=== PATIENT | female | born 1930 | race Caucasian/White ===

== ENCOUNTER 2019-03-19 11:31 | Inpatient (IN) | payer MEDICARE ==
[~2019-03-19] VITALS: Ht 165.1 cm; Wt 59.0 kg
[2019-03-19 12:03] LABS: BASO # 0.1 x10^3/uL (0.0-0.2); BASO % 1 % (0-3); EOS # 1.2 x10^3/uL (0.0-0.7); EOS % 9 % (0-3); HEMATOCRIT 38.7 % (36.0-47.0); HEMOGLOBIN 12.3 g/dL (12.0-15.5); LYMPH # 2.2 x10^3/uL (1.0-4.8); LYMPH % 17 % (24-48); MEAN CORPUSCULAR HEMOGLOBIN 27 pg (25-35); MEAN CORPUSCULAR HGB CONC 32 g/dL (31-37); MEAN CORPUSCULAR VOLUME 84 fL (79-100); MONO # 1.4 x10^3/uL (0.0-1.1); MONO % 11 % (0-9); NEUT % 62 % (31-73); PLATELET COUNT 297 x10^3/uL (140-400); RED BLOOD COUNT 4.58 x10^6/uL (3.50-5.40); RED CELL DISTRIBUTION WIDTH 14.7 % (11.5-14.5); WHITE BLOOD COUNT 12.9 x10^3/uL (4.0-11.0)
--- NOTE | 2019-03-19 12:06 | PHYS DOC ---
Past History Past Medical History: Dementia, Other Additional Past Medical Histor: psychosis. MDD. anxiety Past Surgical History: No Surgical History Alcohol Use: None Drug Use: None Adult General Chief Complaint Chief Complaint: MEDICAL CLEARANCE [facility] HPI Patient is a 88-year-old female with history of dementia, COPD who live in a long term center [facility]. Lately she has have episode of anger outburst, she is going to be admitted at this hospital geriapsych unit but need to stop in the ER to have medical clearance first. Patient denied suicidal ideation. She denied any chest pain, no shortness of air. NO cough, no fever. Review of Systems Review of Systems Constitutional: Denies fever or chills [] Eyes: Denies change in visual acuity, redness, or eye pain [] HENT: Denies nasal congestion or sore throat [] Respiratory: Denies cough or shortness of breath [] Cardiovascular: No additional information not addressed in HPI [] GI: Denies abdominal pain, nausea, vomiting, bloody stools or diarrhea [] : Denies dysuria or hematuria [] Musculoskeletal: Denies back pain or joint pain [] Integument: Denies rash or skin lesions [] Neurologic: Denies headache, focal weakness or sensory changes [] Endocrine: Denies polyuria or polydipsia [] All other systems were reviewed and found to be within normal limits, except as documented in this note. Allergies Allergies Allergies Coded Allergies Type Severity Reaction Last Updated Verified No Known Drug Allergies 03/19/19 No Physical Exam Physical Exam Constitutional: Well developed, well nourished, no acute distress, non-toxic appearance. [] HENT: Normocephalic, atraumatic, bilateral external ears normal, oropharynx moist, no oral exudates, nose normal. [] Eyes: PERRLA, EOMI, conjunctiva normal, no discharge. [] Neck: Normal range of motion, no tenderness, supple, no stridor. [] Cardiovascular:Heart rate regular rhythm, no murmur [] Lungs & Thorax: Bilateral breath sounds clear to auscultation [] Abdomen: Bowel sounds normal, soft, no tenderness, no masses, no pulsatile masses. [] Skin: Warm, dry, no erythema, no rash. [] Back: No tenderness, no CVA tenderness. [] Extremities: No tenderness, no cyanosis, no clubbing, ROM intact, no edema. [] Neurologic: Alert and oriented X 3, normal motor function, normal sensory function, no focal deficits noted. [] Psychologic: Affect normal, judgement normal, mood normal. [] Current Patient Data Vital Signs Vital Signs Date Time Temp Pulse Resp B/P (MAP) Pulse Ox O2 Delivery O2 Flow Rate FiO2 03/19/19 11:55 98.1 70 20 97 Room Air EKG EKG [] Radiology/Procedures Radiology/Procedures [] Course & Med Decision Making Course & Med Decision Making Pertinent Labs and Imaging studies reviewed. (See chart for details) [] Dragon Disclaimer Dragon Disclaimer This electronic medical record was generated, in whole or in part, using a voice recognition dictation system. Departure Departure: Impression: Primary Impression: Dementia Disposition: ADMITTED INPATIENT Admitting Physician: Other (Dr. DUCKWORTH) Condition: STABLE Referrals: SMITH DUCKWORTH MD (PCP) ARTURO SAAVEDRA DO Mar 19, 2019 12:06
[2019-03-19 12:08] LABS: CALCIUM 8.9 mg/dL (8.5-10.1); CREATININE 0.8 mg/dL (0.6-1.0); POTASSIUM 4.2 mmol/L (3.5-5.1)
[2019-03-19 12:09] LABS: AMPHETAMINE/METHAMPHETAMINE NEG (NEG); BARBITURATES NEG (NEG); BENZODIAZEPINES NEG (NEG); CANNABINOIDS NEG (NEG); COCAINE NEG (NEG); METHADONE NEG (NEG); OPIATES NEG (NEG); PHENCYCLIDINE NEG (NEG)
[2019-03-19 12:11] LABS: ACETAMIN < 2 mcg/mL (10-30); ETHANOL < 10 mg/dL (0-10); SALIC 0.3 mg/dL (2.8-20.0)
[2019-03-19 12:13] LABS: BILIRUBIN,URINE NEG (NEG); CLARITY,URINE CLEAR; COLOR,URINE YELLOW; GLUCOSE,URINE NEG (NEG); NITRITE,URINE NEG (NEG); UROBILINOGEN,URINE 0.2 mg/dL (0.2 mg/dL)
[2019-03-19 12:14] LABS: ALBUMIN 3.4 g/dL (3.4-5.0); TOTAL BILIRUBIN 0.3 mg/dL (0.2-1.0); TOTAL PROTEIN 6.7 g/dL (6.4-8.2)
[2019-03-19 12:14] LABS: BACTERIA,URINE 0 /HPF (0-FEW); RBC,URINE 0 /HPF (0-2); SQUAMOUS EPITHELIAL CELL,UR OCC /LPF; WBC,URINE RARE /HPF (0-4)
[2019-03-19] MEDS ORDERED: HYDR28.430 TP (14:14)
[2019-03-19] MEDS ORDERED: MIRT15TA90 PO (14:14)
[2019-03-19] MEDS ORDERED: CHOL4POW11 PO (14:14)
[2019-03-19] MEDS ORDERED: RIVA1PAT23 TP (14:14)
[2019-03-19] MEDS ORDERED: ACET500T68 PO ×2 (14:14)
[2019-03-19] MEDS ORDERED: ALBU2.5V5 NEB (14:14)
[2019-03-19] MEDS ORDERED: CHOL500050 PO (14:14)
[2019-03-19] MEDS ORDERED: SODI30SP NS (14:15)
[2019-03-19] MEDS ORDERED: LORA0.5T96 PO (14:15)
[2019-03-19] MEDS ORDERED: GUAI-108 PO (14:15)
[2019-03-19] MEDS ORDERED: RISP0.5T24 PO (14:15)
[2019-03-19] MEDS ORDERED: SERT25TA PO (14:15)
[2019-03-19] MEDS ORDERED: PETR5OIN TP (14:15)
[2019-03-19] MEDS ORDERED: METHYL SALICYLATE/MENTHOL TOPICAL OINTMENT 57GM TUBE. TP PRN (15:00)
[2019-03-19] MEDS ORDERED: MAG HYDROX/AL HYDROX/SIMETH 30 ML ORAL.SUSP PO PRN (15:00)
[2019-03-19] MEDS ORDERED: MAGNESIUM HYDROXIDE 2,400 MG/30 ML ORAL.SUSP. PO PRN (15:00)
[2019-03-19 15:46] VITALS: BP 154/85
--- NOTE | 2019-03-19 17:03 | RAD ---
EXAM: CHEST 2 VIEWS. HISTORY: Wheezing, leukocytosis. COMPARISON: None. FINDINGS: Frontal and lateral views of the chest are obtained. Hyperinflation is consistent with chronic obstructive pulmonary disease. There are no confluent infiltrates. There is no pneumothorax or pleural effusion. The heart is not enlarged. There are surgical clips at the hiatus. IMPRESSION: 1. Chronic obstructive pulmonary disease. No confluent infiltrates. Electronically signed by: Marjan Flaherty MD (03/19/2019 5:00 PM) [facility]
[2019-03-19] MEDS ORDERED: guaiFENesin DM 600/30MG 1 TAB TAB.ER.12H PO PRN (17:15)
[2019-03-19] MEDS ORDERED: ACETAMINOPHEN 500 MG TABLET PO PRN (17:15)
[2019-03-19] MEDS ORDERED: PETROLATUM WHITE TP PRN (17:15)
[2019-03-19] MEDS ORDERED: SODIUM CHLORIDE 0.65% NASAL SPRAY 45ML BOTTLE. NS PRN (17:15)
[2019-03-19] MEDS ORDERED: ALBUTEROL SULFATE 2.5 MG/3 ML NEBU. NEB PRN (17:15)
[2019-03-19] MEDS ORDERED: HYDROCORTISONE 1% TOPICAL CREAM 30GM TUBE. TP PRN (17:30)
[2019-03-19] MEDS: MIRTAZAPINE ODT 15 MG TAB.RAPDIS. PO SCH (20:07)
[2019-03-19] MEDS: risperiDONE 0.25 MG TABLET. PO SCH (20:07)
--- NOTE | 2019-03-19 21:08 | PDOC ---
Exam Note: [place] Note: Please also refer to the separate dictated note~for this date of service dictated separately. Discussed the patient with Nursing staff reviewed the chart.~Reviewed interim history and current functioning. Reviewed vital signs,~Labs/ Radiology~and current medications noted below. Continue current treatment with the changes noted in the dictated addendum note Assessment: Vital Signs/I&O: Vital Signs Date Time Temp Pulse Resp B/P (MAP) Pulse Ox O2 Delivery O2 Flow Rate FiO2 03/19/19 15:46 98.1 65 16 154/85 (108) 97 03/19/19 11:55 Room Air Labs: Laboratory Tests Test 03/19/19 11:42 03/19/19 11:44 Urine Collection Type Void Urine Color Yellow Urine Clarity Clear Urine pH 5.5 Urine Specific Bath <=1.005 Urine Protein Neg (NEG-TRACE) Urine Glucose (UA) Neg mg/dL (NEG) Urine Ketones (Stick) Neg mg/dL (NEG) Urine Blood Neg (NEG) Urine Nitrite Neg (NEG) Urine Bilirubin Neg (NEG) Urine Urobilinogen Dipstick 0.2 mg/dL (0.2 mg/dL) Urine Leukocyte Esterase Neg (NEG) Urine RBC 0 /HPF (0-2) Urine WBC Rare /HPF (0-4) Urine Squamous Epithelial Cells Occ /LPF Urine Bacteria 0 /HPF (0-FEW) Urine Opiates Screen Neg (NEG) Urine Methadone Screen Neg (NEG) Urine Barbiturates Neg (NEG) Urine Phencyclidine Screen Neg (NEG) Urine Amphetamine/Methamphetamine Neg (NEG) Urine Benzodiazepines Screen Neg (NEG) Urine Cocaine Screen Neg (NEG) Urine Cannabinoids Screen Neg (NEG) Urine Ethyl Alcohol Neg (NEG) White Blood Count 12.9 x10^3/uL (4.0-11.0) H Red Blood Count 4.58 x10^6/uL (3.50-5.40) Hemoglobin 12.3 g/dL (12.0-15.5) Hematocrit 38.7 % (36.0-47.0) Mean Corpuscular Volume 84 fL (79-100) Mean Corpuscular Hemoglobin 27 pg (25-35) Mean Corpuscular Hemoglobin Concent 32 g/dL (31-37) Red Cell Distribution Width 14.7 % (11.5-14.5) H Platelet Count 297 x10^3/uL (140-400) Neutrophils (%) (Auto) 62 % (31-73) Lymphocytes (%) (Auto) 17 % (24-48) L Monocytes (%) (Auto) 11 % (0-9) H Eosinophils (%) (Auto) 9 % (0-3) H Basophils (%) (Auto) 1 % (0-3) Neutrophils # (Auto) 8.0 x10^3uL (1.8-7.7) H Lymphocytes # (Auto) 2.2 x10^3/uL (1.0-4.8) Monocytes # (Auto) 1.4 x10^3/uL (0.0-1.1) H Eosinophils # (Auto) 1.2 x10^3/uL (0.0-0.7) H Basophils # (Auto) 0.1 x10^3/uL (0.0-0.2) Sodium Level 140 mmol/L (136-145) Potassium Level 4.2 mmol/L (3.5-5.1) Chloride Level 104 mmol/L (98-107) Carbon Dioxide Level 28 mmol/L (21-32) Anion Gap 8 (6-14) Blood Urea Nitrogen 16 mg/dL (7-20) Creatinine 0.8 mg/dL (0.6-1.0) Estimated GFR (Cockcroft-Gault) 68.0 BUN/Creatinine Ratio 20 (6-20) Glucose Level 83 mg/dL (70-99) Calcium Level 8.9 mg/dL (8.5-10.1) Magnesium Level 2.0 mg/dL (1.8-2.4) Total Bilirubin 0.3 mg/dL (0.2-1.0) Aspartate Amino Transferase (AST) 30 U/L (15-37) Alanine Aminotransferase (ALT) 42 U/L (14-59) Alkaline Phosphatase 80 U/L (46-116) Total Protein 6.7 g/dL (6.4-8.2) Albumin 3.4 g/dL (3.4-5.0) Albumin/Globulin Ratio 1.0 (1.0-1.7) Salicylates Level 0.3 mg/dL (2.8-20.0) L Salicylate Last Dose Date Unknown Salicylate Last Dose Time Unknown Acetaminophen Level < 2 mcg/mL (10-30) L Acetaminophen Last Dose Date Unknown Acetaminophen Last Dose Time Unknown Ethyl Alcohol Level < 10 mg/dL (0-10) Current Medications: Meds: Current Medications Medications (Trade) Dose Ordered Sig/Cristofer Route PRN Reason Start Time Stop Time Status Last Admin Dose Admin Mirtazapine (Remeron Estefani-Tab) 15 mg HS PO 03/19/19 21:00 03/19/19 20:07 Risperidone (RisperDAL) 0.25 mg TID PO 03/19/19 21:00 03/19/19 20:07 I have reviewed the current psychotropics carefully including drug interactions. Risk benefit ratio favors no change other than as noted in my dictated progress note. Diagnosis: Problems: (1) Dementia SMITH DUCKWORTH MD Mar 19, 2019 21:08
[2019-03-19 23:07] LABS: HEMOGLOBIN A1C 5.5 % (4.8-5.6)
[2019-03-20 01:06] LABS: THYROXINE 6.5 ug/dL (4.5-12.0)
[2019-03-20 05:12] VITALS: BP 138/82
[2019-03-20] MEDS: CHOLESTYRAMINE/ASPARTAME 4 GM PACKET PO SCH ×3 (08:11→17:14)
[2019-03-20] MEDS: ACETAMINOPHEN 500 MG TABLET PO SCH (08:11)
[2019-03-20] MEDS: risperiDONE 0.25 MG TABLET. PO SCH ×3 (08:11→20:21)
[2019-03-20] MEDS: SERTRALINE 25 MG TABLET. PO SCH (08:11)
[2019-03-20] MEDS: RIVASTIGMINE 9.5MG PATCH. TD SCH (08:11)
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
[2019-03-20] MEDS: LORazepam 0.5 MG TABLET PO PRN (10:10)
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
--- NOTE | 2019-03-20 11:30 | EKG ---
[address] [address] Test Date: 2019-03-20 Test Time: 05:17:43 Pat Name: JESI GARCIA Department: Room: [address] [place] [address] Gender: F Clinical Data Manager: : 1930 Requested By: ARTURO SAAVEDRA Order Number: [id number] Reading MD: Blaine Gonzalez MD Measurements Intervals [place] Rate: 68 P: 67 CO: 186 QRS: 71 QRSD: 86 T: 83 QT: 402 QTc: 428 Interpretive Statements SINUS RHYTHM Electronically Signed On 04-22-2019 9:33:34 [employer]ING [employer] by Blaine Gonzalez MD
[2019-03-20 15:45] VITALS: BP 136/72
[2019-03-20 18:45] LABS: THYROID STIM HORMONE (TSH) 0.943 uIU/mL (0.358-3.740)
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
[2019-03-20] MEDS: MIRTAZAPINE ODT 15 MG TAB.RAPDIS. PO SCH (20:21)
--- NOTE | 2019-03-20 21:32 | PDOC ---
Exam Note: [place] Note: Please also refer to the separate dictated note~for this date of service dictated separately. Discussed the patient with Nursing staff reviewed the chart.~Reviewed interim history and current functioning. Reviewed vital signs,~Labs/ Radiology~and current medications noted below. Continue current treatment with the changes noted in the dictated addendum note Assessment: Vital Signs/I&O: Vital Signs Date Time Temp Pulse Resp B/P (MAP) Pulse Ox O2 Delivery O2 Flow Rate FiO2 03/20/19 15:45 98.3 67 16 136/72 (93) 96 03/20/19 05:12 Room Air I & O 03/19/19 03/19/19 03/20/19 15:00 23:00 07:00 Intake Total 420 ml Balance 420 ml Current Medications: Meds: Current Medications Medications (Trade) Dose Ordered Sig/Cristofer Route PRN Reason Start Time Stop Time Status Last Admin Dose Admin Acetaminophen (Tylenol) 1,000 mg DAILY PO 03/20/19 09:00 03/20/19 08:11 Rivastigmine (Exelon) 1 patch DAILY TD 03/20/19 09:00 03/20/19 08:11 Sertraline HCl (Zoloft) 25 mg DAILY PO 03/20/19 09:00 03/20/19 08:11 Cholestyramine Resin (Questran Light) 4 gm TIDAC PO 03/20/19 07:30 03/20/19 17:14 I have reviewed the current psychotropics carefully including drug interactions. Risk benefit ratio favors no change other than as noted in my dictated progress note. Diagnosis: Problems: (1) Major neurocognitive disorder (2) Dementia in Alzheimer's disease with delusions (3) Dementia in Alzheimer's disease with depression (4) Dementia, vascular, with delusions (5) Dementia, vascular, with depression (6) Anxiety disorder, unspecified (7) Impulse control disorder, unspecified SMITH DUCKWORTH MD Mar 20, 2019 21:32
[2019-03-21 05:40] VITALS: BP 125/68
[2019-03-21] MEDS: ACETAMINOPHEN 500 MG TABLET PO SCH (08:22)
[2019-03-21] MEDS: CHOLESTYRAMINE/ASPARTAME 4 GM PACKET PO SCH ×3 (08:22→17:08)
[2019-03-21] MEDS: RIVASTIGMINE 9.5MG PATCH. TD SCH (08:22)
[2019-03-21] MEDS: SERTRALINE 25 MG TABLET. PO SCH (08:22)
[2019-03-21] MEDS: risperiDONE 0.25 MG TABLET. PO SCH ×3 (08:22→19:30)
[2019-03-21] MEDS: LORazepam 0.5 MG TABLET PO PRN (12:30)
--- NOTE | 2019-03-21 12:58 | PN ---
DATE: 03/21/2019 SUBJECTIVE: The patient was seen today, met with the staff, chart reviewed and also covering for Dr. Tierney. Staff reports no major behavior problems except she is not sleeping well and waking her roommate because of her dreams. OBSERVATION: VITAL SIGNS: Temperature 97.7, blood pressure 125/68, pulse 61, respirations 16, O2 sat 96%. GENERAL: Slept about 4 hours last night. The patient's appetite is fair. The patient's appetite varies. LABORATORY DATA: The patient's lab reviewed, has elevated triglycerides to 75, LDL 61, HDL 34. MEDICATIONS: The patient's current medications include vitamin D 50,000 units weekly, Zoloft 25 mg daily, Exelon patch daily, Risperdal 0.25 mg t.i.d., mirtazapine 50 mg at night, lorazepam 0.5 mg q. 4 hours p.r.n. The patient is not having any side effects to medications. ASSESSMENT: Major neurocognitive disorder, most likely Alzheimer's versus vascular with delusions, depression, behavioral disturbances and generalized anxiety disorder. PLAN: To continue with the treatment. LENGTH OF STAY: 5-7 days. ERMIAS ALFARO MD DR: VÍCTOR/gracie JOB#: [id number] / [id number]
[2019-03-21] MEDS ORDERED: ONDANSETRON ODT 4 MG TAB.RAPDIS PO PRN (13:15)
[2019-03-21 15:34] VITALS: BP 101/63
[2019-03-21 15:38] LABS: BASO # 0.1 x10^3/uL (0.0-0.2); BASO % 1 % (0-3); EOS # 1.1 x10^3/uL (0.0-0.7); EOS % 14 % (0-3); HEMATOCRIT 37.2 % (36.0-47.0); LYMPH # 1.6 x10^3/uL (1.0-4.8); LYMPH % 21 % (24-48); MEAN CORPUSCULAR HEMOGLOBIN 27 pg (25-35); MEAN CORPUSCULAR HGB CONC 32 g/dL (31-37); MEAN CORPUSCULAR VOLUME 83 fL (79-100); MONO # 0.8 x10^3/uL (0.0-1.1); MONO % 10 % (0-9); NEUT # 4.2 x10^3uL (1.8-7.7); NEUT % 54 % (31-73); PLATELET COUNT 285 x10^3/uL (140-400); RED CELL DISTRIBUTION WIDTH 14.4 % (11.5-14.5); WHITE BLOOD COUNT 7.7 x10^3/uL (4.0-11.0)
[2019-03-21 15:52] LABS: ALBUMIN 3.3 g/dL (3.4-5.0); CALCIUM 8.3 mg/dL (8.5-10.1); CREATININE 0.7 mg/dL (0.6-1.0); GFR 79.3; POTASSIUM 4.2 mmol/L (3.5-5.1); TOTAL BILIRUBIN 0.2 mg/dL (0.2-1.0); TOTAL PROTEIN 6.5 g/dL (6.4-8.2)
[2019-03-21] MEDS: MIRTAZAPINE ODT 15 MG TAB.RAPDIS. PO SCH (19:30)
[2019-03-22 05:40] VITALS: BP 119/60
[2019-03-22] MEDS: ACETAMINOPHEN 500 MG TABLET PO SCH (08:10)
[2019-03-22] MEDS: risperiDONE 0.25 MG TABLET. PO SCH (08:10)
[2019-03-22] MEDS: CHOLESTYRAMINE/ASPARTAME 4 GM PACKET PO SCH ×3 (08:10→16:50)
[2019-03-22] MEDS: RIVASTIGMINE 9.5MG PATCH. TD SCH (08:10)
[2019-03-22] MEDS: SERTRALINE 25 MG TABLET. PO SCH (08:10)
[2019-03-22] MEDS: LORazepam 0.5 MG TABLET PO PRN ×2 (10:04→14:34)
[2019-03-22 16:11] VITALS: BP 136/78
[2019-03-22] MEDS: MIRTAZAPINE ODT 15 MG TAB.RAPDIS. PO SCH (20:32)
[2019-03-22] MEDS ORDERED: risperiDONE ORAL 1 MG/ML 30ml BOTTLE. SL SCH (21:00)
--- NOTE | 2019-03-22 21:15 | PN ---
DATE: 03/22/2019 SUBJECTIVE: The patient was seen today, met with the staff, chart reviewed. The patient is still confused, difficult to follow directions, verbally abusive at times. The patient's behavior fluctuates. The patient is still not sleeping well. OBSERVATION: VITAL SIGNS: Temperature 97.5, blood pressure 119/60, pulse 63, respirations 16, O2 sat 93%. Slept about 8 hours last night. LABORATORY DATA: The patient's lab reviewed. MEDICATIONS: The patient's current medications include Zoloft 25 mg daily, Exelon patch daily, Risperdal 0.25 mg t.i.d., mirtazapine 15 mg at night, lorazepam 0.5 mg q.4 hours p.r.n. The patient is not having any side effects to the medications. ASSESSMENT: 1. Major neurocognitive disorder, most likely Alzheimer's versus vascular with delusion, depression and behavioral disturbances. 2. Generalized anxiety disorder. PLAN: To continue with the treatment and increase Risperdal to 1.5 mg at night. LENGTH OF STAY: 5-7 days. ERMIAS ALFARO MD DR: VÍCTOR/gracie JOB#: [id number] / [id number]
[2019-03-23 05:53] VITALS: BP 128/78
[2019-03-23] MEDS: RIVASTIGMINE 9.5MG PATCH. TD SCH (08:55)
[2019-03-23] MEDS: SERTRALINE 25 MG TABLET. PO SCH (08:55)
[2019-03-23] MEDS: ACETAMINOPHEN 500 MG TABLET PO SCH (08:55)
[2019-03-23] MEDS: CHOLESTYRAMINE/ASPARTAME 4 GM PACKET PO SCH ×3 (08:55→16:18)
[2019-03-23 15:52] VITALS: BP 151/82
[2019-03-23] MEDS: DIVALPROEX 125 MG CAP.SPRINK PO SCH (20:10)
[2019-03-23] MEDS: MIRTAZAPINE ODT 15 MG TAB.RAPDIS. PO SCH (20:11)
[2019-03-23] MEDS: QUEtiapine 25 MG TABLET. PO SCH (20:11)
--- NOTE | 2019-03-23 21:11 | PDOC ---
Exam Note: [place] Note: Please also refer to the separate dictated note~for this date of service dictated separately.~Patient seen individually. Discussed the patient with Nursing staff reviewed the chart.~Reviewed interim history and current functioning. Reviewed vital signs,~Labs/ Radiology~and current medications noted below. Continue current treatment with the changes noted in the dictated addendum note Assessment: Vital Signs/I&O: Vital Signs Date Time Temp Pulse Resp B/P (MAP) Pulse Ox O2 Delivery O2 Flow Rate FiO2 03/23/19 15:52 97.6 87 20 151/82 (105) 96 03/21/19 05:40 Room Air I & O 03/22/19 03/22/19 03/23/19 14:59 22:59 06:59 Intake Total 600 ml 320 ml Balance 600 ml 320 ml Current Medications: Meds: Current Medications Medications (Trade) Dose Ordered Sig/Cristofer Route PRN Reason Start Time Stop Time Status Last Admin Dose Admin Olanzapine (ZyPREXA ZYDIS) 2.5 mg PRN Q2HR PRN PO PSYCHOSIS 03/23/19 11:30 03/23/19 15:03 Quetiapine Fumarate (SEROquel) 25 mg QHS PO 03/23/19 21:00 03/23/19 20:11 Divalproex Sodium (Depakote Sprinkles) 125 mg 0900,1700 PO 03/23/19 19:00 03/23/19 20:10 I have reviewed the current psychotropics carefully including drug interactions. Risk benefit ratio favors no change other than as noted in my dictated progress note. Diagnosis: Problems: (1) Impulse control disorder, unspecified (2) Anxiety disorder, unspecified (3) Dementia, vascular, with depression (4) Dementia, vascular, with delusions (5) Dementia in Alzheimer's disease with depression (6) Dementia in Alzheimer's disease with delusions (7) Major neurocognitive disorder SMITH DUCKWORTH MD Mar 23, 2019 21:11
--- NOTE | 2019-03-23 21:13 | PN ---
DATE: 03/20/2019 PSYCHIATRIC PROGRESS NOTE This late entry, 03/20, covers the elements not covered in my initial note. SUBJECTIVE: I met with the patient on the evening of 03/20. The patient was also staffed at a treatment team meeting with the entire team earlier in the day and her son, Hunter from [place] attended the treatment team meeting. She slept 5 hours previous night, confused, anxious in the morning, exit seeking at the doors, cursing at staff, felt her needs to find her. We will request records from [facility]. REVIEW OF SYSTEMS: No CV, , pulmonary, eye, ENT systems symptoms on review. Reliability poor. MENTAL STATUS EXAM: Oriented to herself. Insight, judgment, recent and remote memory, attention, concentration, fund of knowledge poor, consistent with her diagnosis mentioned in my initial note. PLAN: Chest x-ray is negative. UA negative. WBC 12.9. Maintain Exelon patch 9.5 mg a day, Remeron 15 mg at bedtime, Risperdal 0.25 mg t.i.d., which we will try and taper gradually. Maintain Zoloft 25 mg a day. Adjust further as clinically indicated. SMITH DUCKWORTH MD DR: ERROL/gracie JOB#: [id number] / [id number]
[2019-03-24 05:17] VITALS: BP 115/70
[2019-03-24] MEDS: RIVASTIGMINE 9.5MG PATCH. TD SCH (08:43)
[2019-03-24] MEDS: DIVALPROEX 125 MG CAP.SPRINK PO SCH ×2 (08:43→16:20)
[2019-03-24] MEDS: SERTRALINE 25 MG TABLET. PO SCH (08:44)
[2019-03-24] MEDS: CHOLESTYRAMINE/ASPARTAME 4 GM PACKET PO SCH ×3 (08:44→16:20)
[2019-03-24] MEDS: ACETAMINOPHEN 500 MG TABLET PO SCH (08:44)
[2019-03-24 16:15] VITALS: BP 144/81
[2019-03-24] MEDS: QUEtiapine 25 MG TABLET. PO SCH (20:55)
[2019-03-24] MEDS: MIRTAZAPINE ODT 15 MG TAB.RAPDIS. PO SCH (20:56)
--- NOTE | 2019-03-24 21:30 | PDOC ---
Exam Note: [place] Note: Please also refer to the separate dictated note~for this date of service dictated separately.~Patient seen individually. Discussed the patient with Nursing staff reviewed the chart.~Reviewed interim history and current functioning. Reviewed vital signs,~Labs/ Radiology~and current medications noted below. Continue current treatment with the changes noted in the dictated addendum note Assessment: Vital Signs/I&O: Vital Signs Date Time Temp Pulse Resp B/P (MAP) Pulse Ox O2 Delivery O2 Flow Rate FiO2 03/24/19 16:15 98.7 77 16 144/81 (102) 95 03/21/19 05:40 Room Air I & O 03/23/19 03/23/19 03/24/19 15:00 23:00 07:00 Intake Total 600 ml 480 ml Balance 600 ml 480 ml Current Medications: I have reviewed the current psychotropics carefully including drug interactions. Risk benefit ratio favors no change other than as noted in my dictated progress note. Diagnosis: Problems: (1) Impulse control disorder, unspecified (2) Anxiety disorder, unspecified (3) Dementia, vascular, with depression (4) Dementia, vascular, with delusions (5) Dementia in Alzheimer's disease with depression (6) Dementia in Alzheimer's disease with delusions (7) Major neurocognitive disorder SMITH DUCKWORTH MD Mar 24, 2019 21:30
[2019-03-25 05:14] VITALS: BP 114/68
[2019-03-25] MEDS: SERTRALINE 50 MG TABLET. PO SCH (09:09)
[2019-03-25] MEDS: DIVALPROEX 125 MG CAP.SPRINK PO SCH ×2 (09:09→16:25)
[2019-03-25] MEDS: RIVASTIGMINE 9.5MG PATCH. TD SCH (09:09)
[2019-03-25] MEDS: ACETAMINOPHEN 500 MG TABLET PO SCH (09:09)
[2019-03-25] MEDS: CHOLESTYRAMINE/ASPARTAME 4 GM PACKET PO SCH ×3 (09:10→16:25)
[2019-03-25 15:42] VITALS: BP 127/75
[2019-03-25] MEDS: MIRTAZAPINE ODT 15 MG TAB.RAPDIS. PO SCH (19:32)
[2019-03-25] MEDS: QUEtiapine 25 MG TABLET. PO SCH (19:32)
--- NOTE | 2019-03-25 20:51 | PDOC ---
Exam Note: [place] Note: Please also refer to the separate dictated note~for this date of service dictated separately.~Patient seen individually. Discussed the patient with Nursing staff reviewed the chart.~Reviewed interim history and current functioning. Reviewed vital signs,~Labs/ Radiology~and current medications noted below. Continue current treatment with the changes noted in the dictated addendum note Assessment: Vital Signs/I&O: Vital Signs Date Time Temp Pulse Resp B/P (MAP) Pulse Ox O2 Delivery O2 Flow Rate FiO2 03/25/19 15:42 98.7 67 16 127/75 (92) 96 03/25/19 05:14 Room Air I & O 03/24/19 03/24/19 03/25/19 14:59 22:59 06:59 Intake Total 720 ml 480 ml Balance 720 ml 480 ml Current Medications: Meds: Current Medications Medications (Trade) Dose Ordered Sig/Cristofer Route PRN Reason Start Time Stop Time Status Last Admin Dose Admin Sertraline HCl (Zoloft) 50 mg DAILY PO 03/25/19 09:00 03/25/19 09:09 I have reviewed the current psychotropics carefully including drug interactions. Risk benefit ratio favors no change other than as noted in my dictated progress note. Diagnosis: Problems: (1) Impulse control disorder, unspecified (2) Anxiety disorder, unspecified (3) Dementia, vascular, with depression (4) Dementia, vascular, with delusions (5) Dementia in Alzheimer's disease with depression (6) Dementia in Alzheimer's disease with delusions (7) Major neurocognitive disorder SMITH DUCKWORTH MD Mar 25, 2019 20:51
[2019-03-26 05:40] VITALS: BP 115/75
[2019-03-26] MEDS: RIVASTIGMINE 9.5MG PATCH. TD SCH (08:31)
[2019-03-26] MEDS: DIVALPROEX 125 MG CAP.SPRINK PO SCH ×2 (08:31→16:29)
[2019-03-26] MEDS: CHOLESTYRAMINE/ASPARTAME 4 GM PACKET PO SCH ×3 (08:31→16:29)
[2019-03-26] MEDS: ACETAMINOPHEN 500 MG TABLET PO SCH (08:31)
[2019-03-26] MEDS: SERTRALINE 50 MG TABLET. PO SCH (08:31)
[2019-03-26] MEDS ORDERED: CHOLECALCIFEROL (VITAMIN D3) 50,000 UNIT CAPSULE PO SCH (16:00)
[2019-03-26 16:23] VITALS: BP 143/68
[2019-03-26] MEDS: QUEtiapine 25 MG TABLET. PO SCH (19:44)
[2019-03-26] MEDS: MIRTAZAPINE ODT 15 MG TAB.RAPDIS. PO SCH (19:44)
--- NOTE | 2019-03-26 21:11 | PDOC ---
Exam Note: [place] Note: Please also refer to the separate dictated note~for this date of service dictated separately.~Patient seen individually. Discussed the patient with Nursing staff reviewed the chart.~Reviewed interim history and current functioning. Reviewed vital signs,~Labs/ Radiology~and current medications noted below. Continue current treatment with the changes noted in the dictated addendum note Assessment: Vital Signs/I&O: Vital Signs Date Time Temp Pulse Resp B/P (MAP) Pulse Ox O2 Delivery O2 Flow Rate FiO2 03/26/19 16:23 97.8 70 16 143/68 (93) 98 Room Air I & O 03/25/19 03/25/19 03/26/19 15:00 23:00 07:00 Intake Total 960 ml 240 ml 240 ml Balance 960 ml 240 ml 240 ml Current Medications: Meds: Current Medications Medications (Trade) Dose Ordered Sig/Cristofer Route PRN Reason Start Time Stop Time Status Last Admin Dose Admin Vitamin D (Vitamin D3) 50,000 unit QTH PO 03/26/19 16:00 03/26/19 16:29 I have reviewed the current psychotropics carefully including drug interactions. Risk benefit ratio favors no change other than as noted in my dictated progress note. Diagnosis: Problems: (1) Impulse control disorder, unspecified (2) Anxiety disorder, unspecified (3) Dementia, vascular, with depression (4) Dementia, vascular, with delusions (5) Dementia in Alzheimer's disease with depression (6) Dementia in Alzheimer's disease with delusions (7) Major neurocognitive disorder SMITH DUCKWORTH MD Mar 26, 2019 21:11
--- NOTE | 2019-03-27 01:04 | PN ---
DATE: 03/23/2019 PSYCHIATRIC PROGRESS NOTE This late entry, 03/23/2019, covers elements not covered in my initial note. SUBJECTIVE: Per Hayley RN, the patient slept 6 hours previous night, is confused, disorganized, restless, looking for her son. REVIEW OF SYSTEMS: No CV, , pulmonary, eye, ENT system symptoms on review. Reliability poor. MENTAL STATUS EXAM: Oriented to herself. Insight, judgment, recent and remote memory, attention, concentration, fund of knowledge poor, consistent with her diagnosis mentioned in my initial note. PLAN: Change Risperdal 1.5 mg a day down to Seroquel 25 mg at bedtime. Start Depakote Sprinkles 125 mg twice a day. Check labs level in 3 days. Rest unchanged. MAN Sander DUCKWORTH MD DR: ERROL/gracie JOB#: [id number] / [id number]
--- NOTE | 2019-03-27 01:19 | PN ---
DATE: 03/24/2019 PSYCHIATRIC PROGRESS NOTE This late entry 03/24/2019 covers the elements not covered in my initial note. SUBJECTIVE: I met with the patient in the evening. Per CHARLENE Bryant, the patient slept 6 hours previous night. She seems to sundown, gets agitated, delusional, exit seeking, confused in the evening, was punching staff, ate nothing for lunch, and was quite lucid at breakfast time. REVIEW OF SYSTEMS: No CV, , pulmonary, eye, ENT system symptoms on review. Reliability poor. MENTAL STATUS EXAM: Oriented to herself. Insight, judgment, recent, and remote memory, attention, concentration, fund of knowledge poor, consistent with her diagnosis mentioned in my initial note. PLAN: No change from initial note. She has received Zyprexa at 2.5 mg twice during the day p.r.n. MAN Sander DUCKWORTH MD DR: ERROL/gracie JOB#: [id number] / [id number]
[2019-03-27 04:52] VITALS: BP 150/68
[2019-03-27 07:34] LABS: BASO # 0.1 x10^3/uL (0.0-0.2); BASO % 1 % (0-3); EOS # 1.1 x10^3/uL (0.0-0.7); EOS % 14 % (0-3); HEMATOCRIT 38.3 % (36.0-47.0); HEMOGLOBIN 12.3 g/dL (12.0-15.5); LYMPH # 1.9 x10^3/uL (1.0-4.8); LYMPH % 23 % (24-48); MEAN CORPUSCULAR HEMOGLOBIN 27 pg (25-35); MEAN CORPUSCULAR HGB CONC 32 g/dL (31-37); MEAN CORPUSCULAR VOLUME 84 fL (79-100); MONO # 0.9 x10^3/uL (0.0-1.1); MONO % 10 % (0-9); NEUT # 4.4 x10^3uL (1.8-7.7); NEUT % 52 % (31-73); PLATELET COUNT 287 x10^3/uL (140-400); RED BLOOD COUNT 4.58 x10^6/uL (3.50-5.40); RED CELL DISTRIBUTION WIDTH 14.7 % (11.5-14.5); WHITE BLOOD COUNT 8.5 x10^3/uL (4.0-11.0)
[2019-03-27 07:54] LABS: ALBUMIN 3.2 g/dL (3.4-5.0); ALK PHOS 71 U/L (46-116); ALT (SGPT) 22 U/L (14-59); ANION GAP 9 (6-14); AST (SGOT) 19 U/L (15-37); BLOOD UREA NITROGEN 15 mg/dL (7-20); BUN/CREATININE RATIO 19 (6-20); CALCIUM 8.7 mg/dL (8.5-10.1); CARBON DIOXIDE 27 mmol/L (21-32); CHLORIDE 108 mmol/L (98-107); CREATININE 0.8 mg/dL (0.6-1.0); GLUCOSE 80 mg/dL (70-99); POTASSIUM 4.3 mmol/L (3.5-5.1); SODIUM 144 mmol/L (136-145); TOTAL BILIRUBIN 0.3 mg/dL (0.2-1.0); TOTAL PROTEIN 6.5 g/dL (6.4-8.2)
[2019-03-27 07:56] LABS: VAL ACID 21 mcg/mL (50-100)
[2019-03-27] MEDS: CHOLESTYRAMINE/ASPARTAME 4 GM PACKET PO SCH ×3 (08:11→17:16)
[2019-03-27] MEDS: ACETAMINOPHEN 500 MG TABLET PO SCH (08:13)
[2019-03-27] MEDS: SERTRALINE 50 MG TABLET. PO SCH (08:13)
[2019-03-27] MEDS: RIVASTIGMINE 9.5MG PATCH. TD SCH (09:00)
[2019-03-27] MEDS: DIVALPROEX 125 MG CAP.SPRINK PO SCH ×2 (09:00→17:16)
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
--- NOTE | 2019-03-27 10:26 | PN ---
DATE: 03/25/2019 PSYCHIATRIC PROGRESS NOTE This late entry 03/25/2019 covers the elements not covered in my initial note. SUBJECTIVE: I met with the patient in the evening of 03/25/2019. Per CHARLENE Davis, the patient slept 5-1/4 hours previous night. She has been anxious, restless, was grabbing nursing staff and hitting nursing staff during showers. Compliant with medications, did receive Zyprexa p.r.n., did better after that. REVIEW OF SYSTEMS: No CV, , pulmonary, eye, ENT system symptoms on review. Reliability poor. MENTAL STATUS EXAM: Oriented to herself. Insight, judgment, recent and remote memory, attention, concentration, fund of knowledge poor, consistent with her diagnosis mentioned in my initial note. PLAN: No change from initial note. Maintain Zoloft, Seroquel, Exelon patch. Add Depakote Sprinkles along with Zyprexa p.r.n., Remeron 15 mg at bedtime. MAN Sander DUCKWORTH MD DR: ERROL/gracie JOB#: [id number] / [id number]
--- NOTE | 2019-03-27 10:28 | PN ---
DATE: 03/26/2019 This late entry 03/26/2019 covers elements not covered in my initial note. SUBJECTIVE: I met with the patient evening of 03/26/2019. Per CHARLENE Chiu, the patient slept 7 hours previous night. She remains anxious, restless, confused, convinced that one of the other demented patients on the unit is her , difficult to redirect from this. Otherwise, quite social. REVIEW OF SYSTEMS: No CV, , pulmonary, eye, ENT system symptoms on review. Reliability poor. MENTAL STATUS EXAM: Oriented to herself. Insight, judgment, recent and remote memory, attention, concentration, fund of knowledge poor, consistent with her diagnosis mentioned in my initial note. PLAN: No change from initial note. MAN Sander DUCKWORTH MD DR: ERROL/gracie JOB#: [id number] / [id number]
[2019-03-27 15:45] VITALS: BP 149/71
[2019-03-27] MEDS: QUEtiapine 25 MG TABLET. PO SCH (20:20)
[2019-03-27] MEDS: MIRTAZAPINE ODT 15 MG TAB.RAPDIS. PO SCH (20:20)
--- NOTE | 2019-03-27 20:58 | PDOC ---
Exam Note: [place] Note: Please also refer to the separate dictated note~for this date of service dictated separately.~Patient seen individually. Discussed the patient with Nursing staff reviewed the chart.~Reviewed interim history and current functioning. Reviewed vital signs,~Labs/ Radiology~and current medications noted below. Continue current treatment with the changes noted in the dictated addendum note Assessment: Vital Signs/I&O: Vital Signs Date Time Temp Pulse Resp B/P (MAP) Pulse Ox O2 Delivery O2 Flow Rate FiO2 03/27/19 15:45 98.9 66 18 149/71 (97) 96 03/27/19 04:52 Room Air I & O 03/26/19 03/26/19 03/27/19 15:00 23:00 07:00 Intake Total 720 ml 480 ml Balance 720 ml 480 ml Labs: Laboratory Tests Test 03/27/19 07:15 White Blood Count 8.5 x10^3/uL (4.0-11.0) Red Blood Count 4.58 x10^6/uL (3.50-5.40) Hemoglobin 12.3 g/dL (12.0-15.5) Hematocrit 38.3 % (36.0-47.0) Mean Corpuscular Volume 84 fL (79-100) Mean Corpuscular Hemoglobin 27 pg (25-35) Mean Corpuscular Hemoglobin Concent 32 g/dL (31-37) Red Cell Distribution Width 14.7 % (11.5-14.5) H Platelet Count 287 x10^3/uL (140-400) Neutrophils (%) (Auto) 52 % (31-73) Lymphocytes (%) (Auto) 23 % (24-48) L Monocytes (%) (Auto) 10 % (0-9) H Eosinophils (%) (Auto) 14 % (0-3) H Basophils (%) (Auto) 1 % (0-3) Neutrophils # (Auto) 4.4 x10^3uL (1.8-7.7) Lymphocytes # (Auto) 1.9 x10^3/uL (1.0-4.8) Monocytes # (Auto) 0.9 x10^3/uL (0.0-1.1) Eosinophils # (Auto) 1.1 x10^3/uL (0.0-0.7) H Basophils # (Auto) 0.1 x10^3/uL (0.0-0.2) Sodium Level 144 mmol/L (136-145) Potassium Level 4.3 mmol/L (3.5-5.1) Chloride Level 108 mmol/L (98-107) H Carbon Dioxide Level 27 mmol/L (21-32) Anion Gap 9 (6-14) Blood Urea Nitrogen 15 mg/dL (7-20) Creatinine 0.8 mg/dL (0.6-1.0) Estimated GFR (Cockcroft-Gault) 68.0 BUN/Creatinine Ratio 19 (6-20) Glucose Level 80 mg/dL (70-99) Calcium Level 8.7 mg/dL (8.5-10.1) Total Bilirubin 0.3 mg/dL (0.2-1.0) Aspartate Amino Transferase (AST) 19 U/L (15-37) Alanine Aminotransferase (ALT) 22 U/L (14-59) Alkaline Phosphatase 71 U/L (46-116) Total Protein 6.5 g/dL (6.4-8.2) Albumin 3.2 g/dL (3.4-5.0) L Albumin/Globulin Ratio 1.0 (1.0-1.7) Valproic Acid Level 21 mcg/mL (50-100) L Valproic Acid Last Dose Date 03/26/2019 Valproic Acid Last Dose Time 1700 Current Medications: Meds: Current Medications Medications (Trade) Dose Ordered Sig/Cristofer Route PRN Reason Start Time Stop Time Status Last Admin Dose Admin Quetiapine Fumarate (SEROquel) 37.5 mg QHS PO 03/27/19 21:00 03/27/19 20:20 I have reviewed the current psychotropics carefully including drug interactions. Risk benefit ratio favors no change other than as noted in my dictated progress note. Diagnosis: Problems: (1) Impulse control disorder, unspecified (2) Anxiety disorder, unspecified (3) Dementia, vascular, with depression (4) Dementia, vascular, with delusions (5) Dementia in Alzheimer's disease with depression (6) Dementia in Alzheimer's disease with delusions (7) Major neurocognitive disorder SMITH DUCKWORTH MD Mar 27, 2019 20:58
[2019-03-28 04:55] VITALS: BP 124/70
[2019-03-28] MEDS: CHOLESTYRAMINE/ASPARTAME 4 GM PACKET PO SCH ×3 (08:32→15:39)
[2019-03-28] MEDS: SERTRALINE 50 MG TABLET. PO SCH (08:35)
[2019-03-28] MEDS: ACETAMINOPHEN 500 MG TABLET PO SCH (08:35)
[2019-03-28] MEDS: DIVALPROEX 125 MG CAP.SPRINK PO SCH ×2 (08:35→16:12)
[2019-03-28] MEDS: RIVASTIGMINE 9.5MG PATCH. TD SCH (08:36)
[2019-03-28 16:39] VITALS: BP 132/70
--- NOTE | 2019-03-28 21:22 | PDOC ---
Exam Note: [place] Note: Please also refer to the separate dictated note~for this date of service dictated separately.~Patient seen individually. Discussed the patient with Nursing staff reviewed the chart.~Reviewed interim history and current functioning. Reviewed vital signs,~Labs/ Radiology~and current medications noted below. Continue current treatment with the changes noted in the dictated addendum note Assessment: Vital Signs/I&O: Vital Signs Date Time Temp Pulse Resp B/P (MAP) Pulse Ox O2 Delivery O2 Flow Rate FiO2 03/28/19 16:39 98.0 68 20 132/70 (90) 97 Room Air I & O 03/27/19 03/27/19 03/28/19 14:59 22:59 06:59 Intake Total 600 ml 600 ml Balance 600 ml 600 ml Current Medications: I have reviewed the current psychotropics carefully including drug interactions. Risk benefit ratio favors no change other than as noted in my dictated progress note. Diagnosis: Problems: (1) Impulse control disorder, unspecified (2) Anxiety disorder, unspecified (3) Dementia, vascular, with depression (4) Dementia, vascular, with delusions (5) Dementia in Alzheimer's disease with depression (6) Dementia in Alzheimer's disease with delusions (7) Major neurocognitive disorder SMITH DUCKWORTH MD Mar 28, 2019 21:22
[2019-03-28] MEDS: MIRTAZAPINE ODT 15 MG TAB.RAPDIS. PO SCH (21:34)
[2019-03-28] MEDS: QUEtiapine 25 MG TABLET. PO SCH (21:34)
[2019-03-29 05:00] VITALS: BP 97/52
[2019-03-29] MEDS: DIVALPROEX 125 MG CAP.SPRINK PO SCH ×2 (08:36→17:13)
[2019-03-29] MEDS: CHOLESTYRAMINE/ASPARTAME 4 GM PACKET PO SCH ×3 (08:36→17:13)
[2019-03-29] MEDS: RIVASTIGMINE 9.5MG PATCH. TD SCH (08:36)
[2019-03-29] MEDS: ACETAMINOPHEN 500 MG TABLET PO SCH (08:36)
[2019-03-29] MEDS: SERTRALINE 50 MG TABLET. PO SCH (08:36)
[2019-03-29 15:48] VITALS: BP 135/68
--- NOTE | 2019-03-29 20:43 | PDOC ---
Exam Note: [place] Note: Please also refer to the separate dictated note~for this date of service dictated separately.~Patient seen individually. Discussed the patient with Nursing staff reviewed the chart.~Reviewed interim history and current functioning. Reviewed vital signs,~Labs/ Radiology~and current medications noted below. Continue current treatment with the changes noted in the dictated addendum note Assessment: Vital Signs/I&O: Vital Signs Date Time Temp Pulse Resp B/P (MAP) Pulse Ox O2 Delivery O2 Flow Rate FiO2 03/29/19 15:48 97.3 65 16 135/68 (90) 94 03/28/19 16:39 Room Air I & O 03/28/19 03/28/19 03/29/19 15:00 23:00 07:00 Intake Total 720 ml 320 ml Balance 720 ml 320 ml Current Medications: I have reviewed the current psychotropics carefully including drug interactions. Risk benefit ratio favors no change other than as noted in my dictated progress note. Diagnosis: Problems: (1) Impulse control disorder, unspecified (2) Anxiety disorder, unspecified (3) Dementia, vascular, with depression (4) Dementia, vascular, with delusions (5) Dementia in Alzheimer's disease with depression (6) Dementia in Alzheimer's disease with delusions (7) Major neurocognitive disorder SMITH DUCKWORTH MD Mar 29, 2019 20:43
[2019-03-29] MEDS: QUEtiapine 25 MG TABLET. PO SCH (20:53)
[2019-03-29] MEDS: MIRTAZAPINE ODT 15 MG TAB.RAPDIS. PO SCH (20:53)
--- NOTE | 2019-03-30 00:44 | PN ---
DATE: 03/28/2019 PSYCHIATRIC PROGRESS NOTE This late entry, 03/28/2019, covers elements not covered in my initial note. SUBJECTIVE: I met with the patient in the evening. The patient slept 7-1/2 hours previous night. She remains confused, looking for her and then for the bus, but not aggressive. REVIEW OF SYSTEMS: No CV, , pulmonary, eye, ENT system symptoms on review. Reliability poor. MENTAL STATUS EXAM: Oriented to herself. Insight, judgment, recent and remote memory, attention, concentration, fund of knowledge poor, consistent with her diagnosis mentioned in my initial note. PLAN: No change from initial note. SMITH DUCKWORTH MD DR: ERROL/gracie JOB#: [id number] / [id number]
--- NOTE | 2019-03-30 00:45 | PN ---
DATE: 03/27/2019 PSYCHIATRIC PROGRESS NOTE. This late entry of 03/27/2019 covers the elements not covered in my initial note. SUBJECTIVE: I met with the patient in the evening of 03/27/2019 and staffed at a treatment team meeting with the entire team earlier in the day and the patient's son, Hunter, attended this conference. Per CHARLENE Chiu, the patient slept 6-1/2 hours. Appetite 85%. Valproic acid level 21. She has been pleasant, looking for her , compliant with medications, anxious during showers, wandering, looking for the bus. REVIEW OF SYSTEMS: No CV, , pulmonary, eye, ENT system symptoms on review. Reliability poor. MENTAL STATUS EXAM: Oriented to herself. Insight, judgment, recent and remote memory, attention, concentration, fund of knowledge poor, consistent with her diagnosis mentioned in my initial note. PLAN: No change from initial note. SMITH DUCKWORTH MD DR: ERROL/gracie JOB#: [id number] / [id number]
[2019-03-30 05:56] VITALS: BP 114/65
[2019-03-30] MEDS: SERTRALINE 50 MG TABLET. PO SCH (08:10)
[2019-03-30] MEDS: DIVALPROEX 125 MG CAP.SPRINK PO SCH ×2 (08:10→17:10)
[2019-03-30] MEDS: ACETAMINOPHEN 500 MG TABLET PO SCH (08:10)
[2019-03-30] MEDS: CHOLESTYRAMINE/ASPARTAME 4 GM PACKET PO SCH ×3 (08:10→16:30)
[2019-03-30] MEDS: RIVASTIGMINE 9.5MG PATCH. TD SCH (08:12)
[2019-03-30 15:52] VITALS: BP 147/78
[2019-03-30] MEDS: MIRTAZAPINE ODT 15 MG TAB.RAPDIS. PO SCH (20:20)
[2019-03-30] MEDS: QUEtiapine 25 MG TABLET. PO SCH (20:21)
--- NOTE | 2019-03-30 20:46 | PDOC ---
Exam Note: [place] Note: Please also refer to the separate dictated note~for this date of service dictated separately.~Patient seen individually. Discussed the patient with Nursing staff reviewed the chart.~Reviewed interim history and current functioning. Reviewed vital signs,~Labs/ Radiology~and current medications noted below. Continue current treatment with the changes noted in the dictated addendum note Assessment: Vital Signs/I&O: Vital Signs Date Time Temp Pulse Resp B/P (MAP) Pulse Ox O2 Delivery O2 Flow Rate FiO2 03/30/19 15:52 97.9 61 16 147/78 (101) 97 03/28/19 16:39 Room Air I & O 03/29/19 03/29/19 03/30/19 15:00 23:00 07:00 Intake Total 720 ml 840 ml Balance 720 ml 840 ml Current Medications: I have reviewed the current psychotropics carefully including drug interactions. Risk benefit ratio favors no change other than as noted in my dictated progress note. Diagnosis: Problems: (1) Impulse control disorder, unspecified (2) Anxiety disorder, unspecified (3) Dementia, vascular, with depression (4) Dementia, vascular, with delusions (5) Dementia in Alzheimer's disease with depression (6) Dementia in Alzheimer's disease with delusions (7) Major neurocognitive disorder SMITH DUCKWORTH MD Mar 30, 2019 20:46
--- NOTE | 2019-03-30 21:54 | PN ---
DATE: 03/29/2019 PSYCHIATRIC PROGRESS NOTE This late entry 03/29/2019 covers the elements not covered in my initial note. SUBJECTIVE: I met with the patient evening of 03/29/2019. The patient slept 7-1/2 hours previous night. She remains confused, redirectable, anxious at times. REVIEW OF SYSTEMS: No CV, , pulmonary, eye, ENT system symptoms on review. Very pleasant, interactive as I met with her. Reliability poor. MENTAL STATUS EXAM: Oriented to herself. Insight, judgment, recent and remote memory, attention, concentration, fund of knowledge poor, consistent with her diagnosis mentioned in my initial note. PLAN: No change from initial note. MAN Sander DUCKWORTH MD DR: ERROL/gracie JOB#: [id number] / [id number]
[2019-03-31] MEDS ORDERED: DIVA125C3 PO (00:12)
[2019-03-31] MEDS ORDERED: MAG355OR22 PO (00:13)
[2019-03-31] MEDS ORDERED: MAGN24003 PO (00:13)
[2019-03-31] MEDS ORDERED: ONDA4TAB12 PO (00:14)
[2019-03-31] MEDS ORDERED: METH28OI2 TP (00:14)
[2019-03-31] MEDS ORDERED: OLAN5TAB5 PO (00:14)
[2019-03-31] MEDS ORDERED: RIVA1PAT5 TD (00:15)
[2019-03-31] MEDS ORDERED: QUET25TA5 PO (00:15)
[2019-03-31] MEDS ORDERED: SERT50TA PO (00:16)
[2019-03-31 05:48] VITALS: BP 117/51
[2019-03-31] MEDS ORDERED: SERTRALINE 25 MG TABLET. PO SCH (09:00)
[2019-03-31] MEDS: DIVALPROEX 125 MG CAP.SPRINK PO SCH (09:00)
[2019-03-31] MEDS: ACETAMINOPHEN 500 MG TABLET PO SCH (09:00)
[2019-03-31] MEDS: CHOLESTYRAMINE/ASPARTAME 4 GM PACKET PO SCH (09:00)
[2019-03-31] MEDS ORDERED: RIVASTIGMINE 13.3MG PATCH. TD SCH (09:00)
--- NOTE | 2019-03-31 20:56 | PDOC ---
Exam Note: [place] Note: Please also refer to the separate dictated note~for this date of service dictated separately.~Patient seen individually. Discussed the patient with Nursing staff reviewed the chart.~Reviewed interim history and current functioning. Reviewed vital signs,~Labs/ Radiology~and current medications noted below. Continue current treatment with the changes noted in the dictated addendum note Assessment: Vital Signs/I&O: Vital Signs Date Time Temp Pulse Resp B/P (MAP) Pulse Ox O2 Delivery O2 Flow Rate FiO2 03/31/19 05:48 97.4 70 16 117/51 (73) 93 03/28/19 16:39 Room Air I & O 03/30/19 03/30/19 03/31/19 15:00 23:00 07:00 Intake Total 840 ml 320 ml Balance 840 ml 320 ml Current Medications: Meds: Current Medications Medications (Trade) Dose Ordered Sig/Cristofer Route PRN Reason Start Time Stop Time Status Last Admin Dose Admin Sertraline HCl (Zoloft) 75 mg DAILY PO 03/31/19 09:00 03/31/19 12:06 DC 03/31/19 09:00 Rivastigmine (Exelon 13.3mg) 1 patch DAILY TD 03/31/19 09:00 03/31/19 12:06 DC 03/31/19 09:01 I have reviewed the current psychotropics carefully including drug interactions. Risk benefit ratio favors no change other than as noted in my dictated progress note. Diagnosis: Problems: (1) Impulse control disorder, unspecified (2) Anxiety disorder, unspecified (3) Dementia, vascular, with depression (4) Dementia, vascular, with delusions (5) Dementia in Alzheimer's disease with depression (6) Dementia in Alzheimer's disease with delusions (7) Major neurocognitive disorder SMITH DUCKWORTH MD Mar 31, 2019 20:56
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
--- NOTE | 2019-03-31 22:30 | PN ---
DATE: 03/30/2019 PSYCHIATRIC PROGRESS NOTE. This late entry of 03/30/2019 covers the elements not covered in my initial note. SUBJECTIVE: I met with the patient in the evening of 03/30/2019. Per CHARLENE Hardy, the patient slept 6-3/4 hours previous night. She did well until lunchtime, then looking for her , exit seeking, received Zyprexa p.r.n. REVIEW OF SYSTEMS: No CV, , pulmonary, eye, ENT system symptoms on review. Reliability poor. MENTAL STATUS EXAM: Oriented to herself. Insight, judgment, recent and remote memory, attention, concentration, fund of knowledge poor, consistent with her diagnosis mentioned in my initial note. IMPRESSION: Major neurocognitive disorder, Alzheimer, vascular with delusion, depression, behavioral disturbance; anxiety disorder, unspecified; impulse control disorder, unspecified. PLAN: Increase Exelon patch from 9.5 mg a day to 13.3 mg a day and Zoloft from 50 mg a day after she has had 3 doses up to 75 mg a day. Continue Depakote Sprinkles 125 mg twice a day, level subtherapeutic at 21 but clinically adequate; Seroquel 37.5 mg p.o. at bedtime; Remeron 15 mg at bedtime; Zyprexa p.r.n. MAN Sander DUCKWORTH MD DR: ERROL/gracie JOB#: [id number] / [id number]
== END 2019-03-31 11:09 | DRG 57 ==
LOC: ER 11:40 → GEROPSY 12:55
PROVIDERS: ADMIT Psychiatry & Neurology Psychiatry; ATTEND Psychiatry & Neurology Psychiatry
DX: G30.9 Alzheimer's disease, unspecified (principal); F02.81 Dementia in other diseases classified elsewhere, unspecified severity, with behavioral disturbance; F41.1 Generalized anxiety disorder; J44.9 Chronic obstructive pulmonary disease, unspecified; F01.50 Vascular dementia, unspecified severity, without behavioral disturbance, psychotic disturbance, mood disturbance, and anxiety; F32.9 Major depressive disorder, single episode, unspecified; F63.9 Impulse disorder, unspecified; Z66 Do not resuscitate; Z79.899 Other long term (current) drug therapy; Z87.440 Personal history of urinary (tract) infections; Z87.891 Personal history of nicotine dependence; Z98.41 Cataract extraction status, right eye; Z98.42 Cataract extraction status, left eye
CPT/HCPCS: 36415; 71046; 80053; 80061; 80164; 80307; 80329; 81001; 82306; 82607; 83036; 83540; 83550; 83690; 83735; 84436; 84443; 84480; 85025; 86592; 93005; G0480; Q0162; 82003; 97116; 99285-25